=== PATIENT | female | born 1985 | race Caucasian/White ===

== ENCOUNTER 2021-12-26 10:01 | Emergency (ER) | payer OTHER, SELFPAY ==
[2021-12-26] VITALS (9 sets, daily range): BP systolic 129–142; BP diastolic 66–91; PULSE 104–116; RESP 16–21; TEMP 36.7; O2SAT 96–99; BMI 31.5
--- NOTE | 2021-12-26 11:49 | ED_ITS ---
HPI - URI/Sore Throat General Chief Complaint: Upper Respiratory Symptoms Stated Complaint: Cough since September- worsening, chest soreness Time Seen by Provider: 12/26/21 11:42 Source: patient Mode of arrival: Ambulatory History of Present Illness HPI Narrative: The patient is a 36-year-old female history asthma presenting today with ongoing cough and shortness of breath. She says it has been ongoing for couple of months. She has a nonproductive cough. She is unable to bend over to tie her shoes because she gets so short of breath. She has positive orthopnea she has severe dyspnea with exertion. She denies any fever or chills. She does have some chest tightness. She has been using her nebulizer at home she has been using her inhaler she says nothing seems to be working. She was evaluated at a neighboring facility previously [facility] had a chest x-ray and told that she has silent acid reflux. She presents today because it continues to worsen and she is not getting any better. She is noted to be tachycardic in the 115. She states that her heart rate is normally 80 however over the past month it has been in the 120s. His she denies any travel Related Data Previous Rx's Medication Instructions Recorded omeprazole 40 mg capsule,delayed 40 mg PO DAILY #20 caps 12/26/21 release prednisone 10 mg tablet 10 mg PO DAILY #30 tabs 12/26/21 Allergies Allergy/AdvReac Type Severity Reaction Status Date / Time No Known Drug Allergies Allergy Verified 12/26/21 10:10 Review of Systems Review of Systems Narrative: GENERAL: Denies chills, fatigue, malaise, fever, sweats, travel HEENT: Denies sinus pain, ear pain, sore throat, difficulty swallowing, neck pain RESPIRATORY: Denies dyspnea, cough, wheezing, hemoptysis, sputum. CARDIOVASCULAR: See HPI GASTROINTESTINAL: Denies nausea, vomiting, abdominal pain, diarrhea, const ipation, melena. : Denies dysuria, frequency, incontinence, hematuria, urinary retention, flank pain. MUSCULOSKELETAL: Denies weakness, joint pain, or bony pain SKIN: No rash, no erythema, no pruritus NEUROLOGIC: Denies weakness, dizziness, headache, numbness, change in speech, confusion PSYCHIATRIC: No concerning psychosocial issues. 12 point review of systems is negative except for those stated above and HPI Patient History Medical History (Updated 12/26/21 @ 19:41 by Xenia Robertson DO) Asthma Social History Smoking Status: Unknown if ever smoked Smoking Status: Unknown if ever smoked alcohol intake frequency: holidays/special occasions only Substance Use Type: does not use Exam Initial Vital Signs Initial Vital Signs: Vital Signs Temperature 98.1 F 12/26/21 10:08 Pulse Rate 106 H 12/26/21 10:08 Respiratory Rate 16 12/26/21 10:08 Blood Pressure 142/91 H 12/26/21 10:08 Pulse Oximetry 99 12/26/21 10:08 Oxygen Delivery Method 12/26/21 10:08 GENERAL: Pleasant alert 36-year-old female and in no acute distress. HEENT: Head atraumatic,EOMI, pupils reactive, face symmetric, moist mucous membranes CARDIOVASCULAR: Regular rate and rhythm without murmurs, rubs or gallops. RESPIRATORY: Breath sounds equal bilaterally, no wheezes rales or rhonchi. ABDOMEN: Soft, nontender. Normoactive bowel sounds all 4 quadrants. No guarding or rebound. EXTREMITIES: Normal range of motion, no clubbing or edema. Neurovascularly intact NEUROLOGICAL: Alert and oriented x4.Normal gait and speech. SKIN: Warm, dry, no laceration, no petechiae, no rashes or lesions. Course Orders Ordered: ED Orders 12/26/21 11:49 XR chest 1V Stat EKG-12 Lead Stat 12/26/21 12:00 Complete Blood Count AUTO DIFF Stat Comprehensive Metabolic Panel Stat D Dimer Stat Lipase Stat NT-proBNP (BNP-Adult 18+) Stat Troponin & CK Cardiac Panel Stat 12/26/21 13:20 COVID19 -Nasal RAPID/Pre-Proc Stat Discontinued Medications Albuterol/Ipratropium (Albuterol/Ipratropium 3 Ml Ampul) 3 ml INH NOW ONE Stop: 12/26/21 13:02 Last Admin: 12/26/21 14:07 Dose: 3 ml Documented By: WENDY Sodium Chloride (Normal Saline 0.9%) 1,000 mls @ 1,000 mls/hr IV BOLUS ONE Stop: 12/26/21 14:00 Last Infusion: 12/26/21 14:28 Dose: 0 mls/hr Documented By: Admin: 12/26/21 13:16 Dose: 1,000 mls/hr Documented By: MANDEEP Methylprednisolone (Methylprednisolone 125 Mg/2 Ml Vial) 125 mg IV NOW ONE Stop: 12/26/21 13:02 Last Admin: 12/26/21 13:16 Dose: 125 mg Documented By: MANDEEP Vital Signs Vital signs: Vital Signs - 8 hr 12/26/21 12:00 12/26/21 12:00 12/26/21 12:30 Pulse Rate 113 H Respiratory Rate 19 Blood Pressure 138/77 134/77 Pulse Oximetry 97 Oxygen Delivery Method 12/26/21 12:30 12/26/21 13:00 12/26/21 13:00 Pulse Rate 104 H 110 H Respiratory Rate 19 17 Blood Pressure 137/85 Pulse Oximetry 97 96 Oxygen Delivery Method Room Air 12/26/21 13:30 12/26/21 13:30 12/26/21 14:00 Pulse Rate 115 H Respiratory Rate 21 Blood Pressure 131/76 129/76 Pulse Oximetry 96 Oxygen Delivery Method Room Air 12/26/21 14:00 12/26/21 14:07 Pulse Rate 106 H 114 H Respiratory Rate 20 16 Blood Pressure Pulse Oximetry 98 96 Oxygen Delivery Method Room Air Room Air MDM - URI/Sore Throat Lab Data Result diagrams: 12/26/21 12:00 12/26/21 12:00 Labs: Lab Results 12/26/21 12/26/21 12/26/21 Range/Units 12:00 12:00 12:00 WBC 6.3 (4.5-11.0) X10^3/uL RBC 4.80 (4.0-5.2) X10^6/uL Hgb 13.7 (12.0-16.0) g/dL Hct 40.1 (36-46) % MCV 83.6 (80-100) fL MCH 28.6 (26-34) PG MCHC 34.2 (30-36) % RDW 13.6 (11.6-14.8) % Plt Count 267 (150-400) X10^3/uL Neut % (Auto) 72.7 (50-75) % Lymph % (Auto) 19.2 L (25-40) % [place] % (Auto) 5.7 (3-14) % Eos % (Auto) 2.1 (2-4) % Baso % (Auto) 0.3 (0-2) % Neut # (Auto) 4600 (7272-6485) /uL Lymph # (Auto) 1200 (2571-5901) /uL [place] # (Auto) 400 (0-900) /uL Eos # (Auto) 100 (0-450) /uL Baso # (Auto) 0 (0-100) /uL D-Dimer < 200 (<230) ng/mL Sodium 139 (137-145) mmol/L Potassium 4.3 (3.4-5.1) mmol/L Chloride 107 (98-107) mmol/L Carbon Dioxide 24 (22-32) mmol/L BUN 10 (7-17) mg/dL Creatinine 0.83 (0.52-1.04) mg/dL Estimated GFR > 60 (>60) mL/min BUN/Creatinine Ratio 12.0 (6-22) Glucose 103 H (70-100) mg/dL Calcium 9.6 (8.4-10.2) mg/dL Total Bilirubin 0.5 (0.2-1.3) mg/dL AST 32 (14-36) IU/L ALT 30 (<35) IU/L Alkaline Phosphatase 95 (38-126) U/L Total Creatine Kinase 296 H (30-135) U/L CK-MB (CK-2) 2.46 H (<2.37) ng/mL CK-MB (CK-2) Rel Index 0.8 L (1.5-5.0) % Troponin I < 0.012 (0.01-0.034) ng/mL NT-Pro-B Natriuret Pep 31 (<125) pg/mL Total Protein 7.3 (6.3-8.2) g/dL Albumin 4.7 (3.5-5.0) g/dL Globulin 2.6 (1.7-4.1) g/dL Albumin/Globulin Ratio 1.8 (1.0-2.8) Lipase 74 (23-300) U/L SARS-CoV-2 (PCR) (Negative) 12/26/21 Range/Units 13:20 WBC (4.5-11.0) X10^3/uL RBC (4.0-5.2) X10^6/uL Hgb (12.0-16.0) g/dL Hct (36-46) % MCV (80-100) fL MCH (26-34) PG MCHC (30-36) % RDW (11.6-14.8) % Plt Count (150-400) X10^3/uL Neut % (Auto) (50-75) % Lymph % (Auto) (25-40) % [place] % (Auto) (3-14) % Eos % (Auto) (2-4) % Baso % (Auto) (0-2) % Neut # (Auto) (3092-8445) /uL Lymph # (Auto) (3985-4558) /uL [place] # (Auto) (0-900) /uL Eos # (Auto) (0-450) /uL Baso # (Auto) (0-100) /uL D-Dimer (<230) ng/mL Sodium (137-145) mmol/L Potassium (3.4-5.1) mmol/L Chloride (98-107) mmol/L Carbon Dioxide (22-32) mmol/L BUN (7-17) mg/dL Creatinine (0.52-1.04) mg/dL Estimated GFR (>60) mL/min BUN/Creatinine Ratio (6-22) Glucose (70-100) mg/dL Calcium (8.4-10.2) mg/dL Total Bilirubin (0.2-1.3) mg/dL AST (14-36) IU/L ALT (<35) IU/L Alkaline Phosphatase (38-126) U/L Total Creatine Kinase (30-135) U/L CK-MB (CK-2) (<2.37) ng/mL CK-MB (CK-2) Rel Index (1.5-5.0) % Troponin I (0.01-0.034) ng/mL NT-Pro-B Natriuret Pep (<125) pg/mL Total Protein (6.3-8.2) g/dL Albumin (3.5-5.0) g/dL Globulin (1.7-4.1) g/dL Albumin/Globulin Ratio (1.0-2.8) Lipase (23-300) U/L SARS-CoV-2 (PCR) Negative (Negative) Imaging Data Chest x-ray: Radiologist's Impression: Signed Patient: Kailyn Pastor MR#: [id number] : 1985 Acct:[id number] Age/Sex: 36 / F Date of Service: 12/26/21 Loc: ED Accession Number: [id number] ?? Procedure: XR chest 1V Ordering Provider: Xenia Robertson D.O. PROCEDURE:? XR CHEST 1V ? INDICATIONS:? chest pain ? TECHNIQUE:? One view of the chest was acquired.? ? COMPARISON:? None. ? FINDINGS:? ? Surgical changes and devices:? None.? ? Lungs and pleura:? Lungs are clear.? No pleural effusions or pneumothorax.? ? Mediastinum:? Mediastinal contours appear normal.? Heart size is normal.? ? Bones and chest wall:? No suspicious bony lesions.? Overlying soft tissues appear unremarkable.? ? IMPRESSION:? No acute cardiopulmonary disease. ? ? Dictated by: Theodore Godoy M.D. on 12/26/2021 at 12:23 ? ECG Data Interpretation: Normal sinus rhythm rate 110 p.r. interval 128 QRS [address] changes no T-wave inversions no priors to MDM Narrative Medical decision making narrative: Patient has had ongoing shortness of breath for 3 weeks. She has some workup at [facility] and included blood work and chest x-ray. No D-dimer was done. She has progressively become more more tachycardic she seems to be tachycardic here in the ED. D-dimer is -100% on room air. BNP is also negative she has a negative troponin. She has albuterol at home she is given a dose of Solu-Medrol here in the ED. Will put her on a long course of steroids. To see if that helps. Also consideration is of chronic cough do include acid reflux. I will for write her for antacid medications to start when she is done with her prednisone taper. Discharge Plan Departure Patient Disposition: Home Clinical Impression: Exacerbation of reactive airway disease, GERD (gastroesophageal reflux disease) Instructions: DI for Reactive Airway Disease-Adult Activity Restrictions/Additional Instructions: *You have been diagnosed with chronic cough, reactive airway disease *What to do: At this time blood work and x-ray are overall reassuring. Possible causes of chronic cough arm acid reflux or ongoing reactive airway disease. At this time I think reasonable to start course of steroids to see if that helps her cough. You can sign will change please start an antacid for about 2 weeks to see if it improves anything. *Continue to take medications as directed Prednisone 40 mg once a day for 3 days, 30 mg once a day for 3 days 20 mg once a day for 3 days and 10 mg once a day for 3 days *Follow up with your primary care provider in 2-3 days or call [phone] *Return to ER if you should have increasing shortness of breath chest pain or any new, worsening or concerning symptoms Prescriptions: New prednisone 10 mg tablet 10 mg PO DAILY Qty: 30 0RF Rx Instructions: day 1-3: 40 mg once a day day 4-6: 30 mg once a day day 7-9: 20 mg once a day day 10-12: 10 mg once a day omeprazole 40 mg capsule,delayed release(DR/EC) 40 mg PO DAILY Qty: 20 0RF Referrals: Sirena Bowles MD [Primary Care Provider] - Visit Report Forms: Patient Portal/API
--- NOTE | 2021-12-26 11:49 | DI.RAD.S_ITS ---
PROCEDURE: XR CHEST 1V INDICATIONS: chest pain TECHNIQUE: One view of the chest was acquired. COMPARISON: None. FINDINGS: Surgical changes and devices: None. Lungs and pleura: Lungs are clear. No pleural effusions or pneumothorax. Mediastinum: Mediastinal contours appear normal. Heart size is normal. Bones and chest wall: No suspicious bony lesions. Overlying soft tissues appear unremarkable. IMPRESSION: No acute cardiopulmonary disease. Dictated by: Theodore Godoy M.D. on 12/26/2021 at 12:23 Approved by: Theodore Godoy M.D. on 12/26/2021 at 12:23
[2021-12-26 12:10] LABS: Add Manual Diff / Slide Review NO; Basophils Absolute Auto 0 /uL (0-100); Basophils Percent Auto 0.3 % (0-2); Eosinophils Absolute Auto 100 /uL (0-450); Eosinophils Percent Auto 2.1 % (2-4); Hematocrit 40.1 % (36-46); Hemoglobin 13.7 g/dL (12.0-16.0); Lymphocytes Absolute Auto 1200 /uL (1100-4500); Lymphocytes Percent Auto 19.2 % (25-40); Mean Corpuscular HGB Conc 34.2 % (30-36); Mean Corpuscular Hemoglobin 28.6 PG (26-34); Mean Corpuscular Volume 83.6 fL (80-100); Monocytes Absolute Auto 400 /uL (0-900); Monocytes Percent Auto 5.7 % (3-14); Neutrophils Absolute Auto 4600 /uL (1500-7000); Neutrophils Percent Auto 72.7 % (50-75); Platelet Count 267 X10^3/uL (150-400); Red Cell Distribution Width 13.6 % (11.6-14.8); White Blood Cell Count 6.3 X10^3/uL (4.5-11.0)
[2021-12-26 12:23] LABS: D Dimer < 200 ng/mL (<230)
[2021-12-26 12:24] LABS: Alanine Aminotransferase 30 IU/L (<35); Albumin 4.7 g/dL (3.5-5.0); Albumin Globulin Ratio 1.8 (1.0-2.8); Alkaline Phosphatase 95 U/L (38-126); Aspartate Aminotransferase 32 IU/L (14-36); Bilirubin Total 0.5 mg/dL (0.2-1.3); Blood Urea Nitrogen 10 mg/dL (7-17); Calcium 9.6 mg/dL (8.4-10.2); Carbon Dioxide 24 mmol/L (22-32); Chloride 107 mmol/L (98-107); Creatine Kinase 296 U/L (30-135); Estimated Glomerular Filt Rate > 60 mL/min (>60); Globulin 2.6 g/dL (1.7-4.1); Glucose 103 mg/dL (70-100); HEMOLYSIS < 15 (0-50); Lipase 74 U/L (23-300); Potassium 4.3 mmol/L (3.4-5.1); Sodium 139 mmol/L (137-145); Total Protein 7.3 g/dL (6.3-8.2)
[2021-12-26 12:36] LABS: NT-proBNP (BNP-Adult 18+) 31 pg/mL (<125); Troponin I < 0.012 ng/mL (0.01-0.034)
[2021-12-26 12:39] LABS: CKMB % Relative Index 0.8 % (1.5-5.0); Creatine Kinase MB 2.46 ng/mL (<2.37)
[2021-12-26] MEDS: SODIUM CHLORIDE 0.9% 1,000 ML 1000 ML IV (13:16)
[2021-12-26] MEDS: methylPREDNISolone 125 MG/2 ML VIAL IV (13:16)
[2021-12-26 13:50] LABS: COVID19 -Nasal RAPID Negative (Negative)
[2021-12-26] MEDS: ALBUTEROL/IPRATROPIUM 3 ML AMPUL INH (14:07)
== END 2021-12-26 14:33 | disposition home or self-care (01) ==
PROVIDERS: Emergency Provider Emergency Medicine; PCP Student in an Organized Health Care Education/Training Program
DX: J45.901 Unspecified asthma with (acute) exacerbation (principal); K21.9 Gastro-esophageal reflux disease without esophagitis; R07.9 Chest pain, unspecified; Z20.822 Contact with and (suspected) exposure to COVID-19
CPT/HCPCS: 36415; 71045; 80053; 82550; 82553; 83690; 83880; 84484; 85025; 85379; 87635; 93005; 93010; 94640; 96361; 96374; 99284; C9803; J2930

== ENCOUNTER 2023-01-13 14:57 | Emergency (ER) | payer OTHER, SELFPAY ==
[2023-01-13 14:59] VITALS: BP 138/79; PULSE 93; RESP 18; TEMP 36.6; O2SAT 98; BMI 34.7
[2023-01-13 17:20] VITALS: BP 138/79; PULSE 84; O2SAT 99
--- NOTE | 2023-01-13 17:59 | ED.BACK ---
HPI - Back Pain/Injury <Eric Mathis PA-C - Last Filed: 01/13/23 19:32> General Chief Complaint: Back Pain/Injury Stated Complaint: back pain Time Seen by Provider: 01/13/23 17:58 Source: patient History of Present Illness HPI Narrative: 37-year-old female with no reported past medical history presents to the ED with 2 days of lower back pain. Patient states that she sporadically has pain shooting down her legs, however pain is not radiating to the legs currently. Patient denies numbness, tingling, weakness. Patient denies urinary hesitancy, saddle paresthesias, urinary incontinence, bowel incontinence. Patient denies fever, chills, chest pain, shortness of breath. Patient denies trauma. Related Data Previous Rx's Medication Instructions Recorded omeprazole 40 mg capsule,delayed 40 mg PO DAILY #20 caps 12/26/21 release prednisone 10 mg tablet 10 mg PO DAILY #30 tabs 12/26/21 cyclobenzaprine 10 mg tablet 10 mg PO TID PRN muscle spasm 3 01/13/23 days #10 tabs Allergies Allergy/AdvReac Type Severity Reaction Status Date / Time No Known Drug Allergies Allergy Verified 12/26/21 10:10 Review of Systems <Eric Mathis PA-C - Last Filed: 01/13/23 19:32> Review of Systems ROS Unobtainable: All systems reviewed & are unremarkable except as noted in HPI and below Constitutional Constitutional: Denies chills, Denies fatigue, Denies fever(s), Denies frequent falls, Denies lethargy and Denies weakness Eyes Eyes: Denies change in vision, Denies eye discharge, Denies irritation and Denies loss of vision ENT Ears, Nose, Mouth, and Throat: Denies change in voice, Denies dizziness, Denies neck pain, Denies sore throat and Denies throat swelling Cardiovascular Cardiovascular: Denies chest pain, Denies irregular heart rhythm, Denies lightheadedness, Denies palpitations, Denies dyspnea, Denies dyspnea on exertion and Denies orthopnea Respiratory Respiratory: Denies cough, Denies dyspnea, Denies dyspnea on exertion and Denies wheezing Gastrointestinal Gastrointestinal: Denies abdominal pain, Denies change in bowel habits, Denies diarrhea, Denies nausea and Denies vomiting Genitourinary Genitourinary: Denies hematuria, Denies flank pain, Denies urinary incontinence and Denies urinary urgency Musculoskeletal Musculoskeletal: Reports back pain, Denies muscle weakness, Denies neck pain, Denies numbness, Reports radiating pain into limb and Denies tingling Integumentary/Breasts Skin/Breast: Denies pruritus, Denies erythema, Denies rash and Denies wounds Neurologic Neurologic: Denies behavioral changes, Denies confusion, Denies dizziness, Denies frequent falls, Denies loss of vision, Denies numbness, Denies tingling and Denies weakness Psychiatric Psychiatric: Denies anxiety, Denies behavioral changes, Denies confusion, Denies depression, Denies homicidal ideation and Denies suicidal ideation Endocrine Endocrine: Denies fatigue, Denies flushing and Denies palpitations Hematologic/Lymphatic Hematologic/Lymphatic: Denies easy bruising Allergic/Immunologic Allergic/Immunologic: Denies urticaria, Denies throat swelling and Denies wheezing Patient History <Eric Mathis PA-C - Last Filed: 01/13/23 19:32> Medical History Asthma Social History Smoking Status: Never smoker Smoking Status: Never smoker alcohol intake frequency: holidays/special occasions only Substance Use Type: does not use Exam <Eric Mathis PA-C - Last Filed: 01/13/23 19:32> Narrative Exam Narrative: Const General:?cooperative, healthy appearing and comfortable [facility] Head:?normal to inspection Ears:?hearing grossly normal bilaterally Nose:?external nose normal Face and sinus:?normal facial exam and sinuses nontender Mouth:?oral mucosae normal Throat:?posterior oropharynx normal Eyes General:?appearance normal, both eyes and all related structures Neck Neck:?normal visual inspection and no lymphadenopathy noted Resp Effort & Inspection:?normal respiratory effort Auscultation:?clear to auscultation bilaterally Cardio Rate:?regular rate Rhythm:?regular rhythm Musculoskeletal There is some midline tenderness to palpation in the lumbar region. No bruising. Strength and sensation is intact. There is full range of motion. Patient appears neurovascularly intact. Neuro General:?patient alert, patient awake and patient oriented x3 Initial Vital Signs Initial Vital Signs: Vital Signs Temperature 97.8 F 01/13/23 14:59 Pulse Rate 93 H 01/13/23 14:59 Respiratory Rate 18 01/13/23 14:59 Blood Pressure 138/79 01/13/23 14:59 Pulse Oximetry 98 01/13/23 14:59 Oxygen Delivery Method Room Air 01/13/23 14:59 <Adriel Henao DO - Last Filed: 01/14/23 02:38> Initial Vital Signs Initial Vital Signs: Vital Signs Temperature 97.8 F 01/13/23 14:59 Pulse Rate 93 H 01/13/23 14:59 Respiratory Rate 18 01/13/23 14:59 Blood Pressure 138/79 01/13/23 14:59 Pulse Oximetry 98 01/13/23 14:59 Oxygen Delivery Method Room Air 01/13/23 14:59 Course <Eric Mathis PA-C - Last Filed: 01/13/23 19:32> Orders Ordered: ED Orders 01/13/23 18:06 XR lumbar spine 2-3V Stat Discontinued Medications Cyclobenzaprine HCl (Cyclobenzaprine 10 Mg Tablet) 10 mg PO NOW ONE Stop: 01/13/23 18:03 Last Admin: 01/13/23 18:12 Dose: 10 mg Documented By: SG Ketorolac Tromethamine (Ketorolac 30 Mg/Ml Vial) 30 mg IM NOW ONE Stop: 01/13/23 18:03 Last Admin: 01/13/23 18:12 Dose: 30 mg Documented By: SG Lidocaine (Lidocaine Patch 1 Each Adh..Patch) 1 each TOP NOW ONE Stop: 01/13/23 18:04 Last Admin: 01/13/23 18:12 Dose: 1 each Documented By: SG Oxycodone/Acetaminophen (Oxycodone/Acetaminophen 5/325 Tablet) 1 tab PO NOW ONE Stop: 01/13/23 19:16 Last Admin: 01/13/23 19:24 Dose: 1 tab Documented By: AP Vital Signs Vital signs: Vital Signs - 8 hr 01/13/23 18:56 01/13/23 19:40 Pulse Rate 78 85 Respiratory Rate 18 16 Blood Pressure 141/101 H 136/78 Pulse Oximetry 99 99 Oxygen Delivery Method Room Air Room Air <Adriel Henao DO - Last Filed: 01/14/23 02:38> Orders Ordered: ED Orders 01/13/23 18:06 XR lumbar spine 2-3V Stat Discontinued Medications Cyclobenzaprine HCl (Cyclobenzaprine 10 Mg Tablet) 10 mg PO NOW ONE Stop: 01/13/23 18:03 Last Admin: 01/13/23 18:12 Dose: 10 mg Documented By: SG Ketorolac Tromethamine (Ketorolac 30 Mg/Ml Vial) 30 mg IM NOW ONE Stop: 01/13/23 18:03 Last Admin: 01/13/23 18:12 Dose: 30 mg Documented By: SG Lidocaine (Lidocaine Patch 1 Each Adh..Patch) 1 each TOP NOW ONE Stop: 01/13/23 18:04 Last Admin: 01/13/23 18:12 Dose: 1 each Documented By: SG Oxycodone/Acetaminophen (Oxycodone/Acetaminophen 5/325 Tablet) 1 tab PO NOW ONE Stop: 01/13/23 19:16 Last Admin: 01/13/23 19:24 Dose: 1 tab Documented By: AP Vital Signs Vital signs: Vital Signs - 8 hr 01/13/23 18:56 01/13/23 19:40 Pulse Rate 78 85 Respiratory Rate 18 16 Blood Pressure 141/101 H 136/78 Pulse Oximetry 99 99 Oxygen Delivery Method Room Air Room Air MDM - Back Pain/Injury <Eric Mathis PA-C - Last Filed: 01/13/23 19:32> MDM Narrative Medical decision making narrative: 37-year-old female with no reported past medical history presents to the ED with 2 days of lower back pain. There is some lumbar midline tenderness. Will obtain x-rays to rule out fracture/dislocation. Will treat with ketorolac, Flexeril, lidocaine patch. Will reassess. Patient reported minimal improvement in pain with medications. Patient was given 1 dose of Percocet. X-ray negative for fractures or dislocations. Patient's symptoms are likely due to a musculoskeletal sprain/strain versus slipped disc. Recommend follow-up with PCP, physical therapy for further evaluation. Recommend continued supportive care with lidocaine patches, Tylenol, Flexeril. Prescribed Flexeril. ED return precautions were discussed with patient. Patient verbalized understanding. Medical records reviewed: Yes Discharge Plan Departure Patient Disposition: Home Clinical Impression: Low back pain Instructions: DI for Low Back Pain Activity Restrictions/Additional Instructions: You were evaluated in the ED today for lower back pain. Your x-ray did not show any fractures or dislocations. Your symptoms are likely due to a musculoskeletal sprain/strain or a slipped disc. You may continue to take Flexeril, ibuprofen, Tylenol. Please follow-up with your PCP for further evaluation, referral to physical therapy. Return to the ED if you experience any numbness, tingling, weakness. Prescriptions: New cyclobenzaprine 10 mg tablet 10 mg PO TID PRN (Reason: muscle spasm) 3 Days Qty: 10 0RF No Action prednisone 10 mg tablet 10 mg PO DAILY Qty: 30 0RF Rx Instructions: day 1-3: 40 mg once a day day 4-6: 30 mg once a day day 7-9: 20 mg once a day day 10-12: 10 mg once a day omeprazole 40 mg capsule,delayed release(DR/EC) 40 mg PO DAILY Qty: 20 0RF Referrals: Sirena Bowles MD [Primary Care Provider] - Stand Alone Forms: Patient Portal/API <Adriel Henao DO - Last Filed: 01/14/23 02:38> [facility] Attestation: I was immediately available in the department for consultation. Documentation has been reviewed. I agree with assessment and plan.
--- NOTE | 2023-01-13 18:06 | DI.RAD.S_ITS ---
PROCEDURE: XR LUMBAR SPINE 2-3V INDICATIONS: Lower back pain TECHNIQUE: 3 views of the lumbar spine were acquired. COMPARISON: [facility], CT, CT KUB, 05/28/2021, 11:51. FINDINGS: Bones: 5 [id number] vertebrae are present. Minimal right convexity curvature centered at L3. No lumbar vertebral body compression fractures identified. No severe substantial lumbar spine degenerative changes identified radiographically. Soft tissues: Overlying bowel gas pattern is normal. No suspicious soft tissue calcifications. An IUD projects over the pelvis. IMPRESSION: No lumbar spine vertebral body compression fracture identified radiographically. Dictated by: Wally Henry M.D. on 01/13/2023 at 19:19 Approved by: Wally Henry M.D. on 01/13/2023 at 19:21
[2023-01-13] MEDS: CYCLOBENZAPRINE 10 MG TABLET PO (18:12)
[2023-01-13] MEDS: KETOROLAC 30 MG/ML VIAL IM (18:12)
[2023-01-13] MEDS: LIDOCAINE PATCH 1 EACH ADH..PATCH TOP (18:12)
[2023-01-13 18:56] VITALS: BP 141/101; PULSE 78; RESP 18; O2SAT 99
[2023-01-13] MEDS: OXYCODONE/ACETAMINOPHEN 5/325 TABLET 1 TAB PO (19:24)
[2023-01-13 19:40] VITALS: BP 136/78; PULSE 85; RESP 16; O2SAT 99
== END 2023-01-13 19:47 | disposition home or self-care (01) ==
PROVIDERS: Emergency Provider Student in an Organized Health Care Education/Training Program; PCP Student in an Organized Health Care Education/Training Program
DX: M54.50 Low back pain, unspecified (principal)
CPT/HCPCS: 72100; 96372; 99283; J1885

== ENCOUNTER 2023-12-07 10:37 | Emergency (ER) | payer OTHER, SELFPAY ==
[2023-12-07 10:40] VITALS: BP 136/72; PULSE 95; RESP 16; TEMP 36.6; O2SAT 96; BMI 31.8
--- NOTE | 2023-12-07 11:05 | PC.NURSE ---
Pt states that she has significant hx of migraine and see's neurology at [facility]. Pt gets botox injections for her migraines and reports that the botox normally helps. Has been experiencing migraines for approximately 4 days and states that last night was the worst MARRERO she has ever had in her life. Pt reports that this migraine is in a different location than normal and goes up her neck and through the back of her head. Pt experiencing n/v and cannot keep anything down. A&Ox4.
--- NOTE | 2023-12-07 11:49 | DI.CT.S_ITS ---
PROCEDURE: CT HEAD/BRAIN WO CON INDICATIONS: Intractable headache TECHNIQUE: Noncontrast 4.5 mm thick angled axial sections acquired from the foramen magnum to the vertex, with coronal and sagittal reformats. For radiation dose reduction, the following was used: automated exposure control, adjustment of mA and/or kV according to patient size. COMPARISON: [facility], MR, MR BRAIN WITHOUT CONTRAST, 06/13/2021, 9:07. FINDINGS: Image quality: Diagnostic. CSF spaces: Basal cisterns are patent. No extra-axial fluid collections. Ventricles are normal in size and shape. Brain: No midline shift. No intracranial masses or hemorrhage. Gonzales-white matter interface is normal. Skull and face: Calvarium and visualized facial bones are intact, without suspicious lesions. Sinuses: Visualized sinuses and mastoids are clear. IMPRESSION: Unremarkable intracranial study, without an imaging explanation found for the patient's presenting history of headache. To the limits of this noncontrast study, no findings of intracranial masses or mass effect can be seen. Dictated by: Jhon Bermudez M.D. on 12/07/2023 at 11:26 Approved by: Jhon Bermudez M.D. on 12/07/2023 at 11:27
--- NOTE | 2023-12-07 11:52 | ED_ITS ---
HPI - Headache General Chief Complaint: Headache Stated Complaint: migraine Time Seen by Provider: 12/07/23 11:38 Mode of arrival: Ambulatory History of Present Illness HPI Narrative: Patient here with daughter. Daughter is driving. Complains of headache for the past 5 days, occipital radiating down the neck. Has had nausea and vomiting. No fever chills. Patient gets Botox injections for migraine headaches. Has long history of migraine headaches. However the location of headache is new. It is occipital. Usually it is facial or left-sided. Has had light sensitivity and noise sensitivity. Denies does not want a test. No numbness tingling weakness Related Data Previous Rx's Medication Instructions Recorded omeprazole 40 mg capsule,delayed 40 mg PO DAILY #20 caps 12/26/21 release prednisone 10 mg tablet 10 mg PO DAILY #30 tabs 12/26/21 Allergies Allergy/AdvReac Type Severity Reaction Status Date / Time No Known Drug Allergies Allergy Verified 12/07/23 10:44 Review of Systems Review of Systems Narrative: GENERAL: negative chills, fatigue, malaise, fever, sweats. HEENT: negative sinus pain, ear pain, sore throat positive photophobia RESPIRATORY: negative dyspnea, cough CARDIOVASCULAR: negative chest pain, palpitations GASTROINTESTINAL: Positive nausea, negative vomiting, abdominal pain : negative dysuria, frequency, hematuria MUSCULOSKELETAL: negative muscle or bony pain SKIN: negative rash, skin lesions NEUROLOGIC: negative weakness, numbness ROS Unobtainable: All systems reviewed & are unremarkable except as noted in HPI and below Patient History Medical History Asthma Social History Smoking Status: Never smoker Smoking Status: Never smoker alcohol intake frequency: holidays/special occasions only Substance Use Type: does not use Exam Narrative Exam Narrative: GENERAL: in no distress, not toxic not dyspneic HEAD: Normocephalic. EYES: Pupils equal round Examination of the eyes no photophobia no papilledema. Fundusscope used. ENT: Mucous membranes moist. NECK: Trachea midline. Examination neck bilateral paracervical muscle tenderness but has full active range of motion of the neck. No nuchal rigidity. No meningeal signs. CARDIOVASCULAR: Regular rate and rhythm RESPIRATORY: Clear to auscultation. Breath sounds equal bilaterally. No wheezes, rales, or rhonchi. GASTROINTESTINAL: Abdomen soft, non-tender EXTREMITIES: No gross deformities. BACK: No flank tenderness. NEURO: AOx4. Clear speech SKIN: Warm and dry PSYCH: Not anxious, is cooperative Initial Vital Signs Initial Vital Signs: Vital Signs Temperature 98 F 12/07/23 10:40 Pulse Rate 95 H 12/07/23 10:40 Respiratory Rate 16 12/07/23 10:40 Blood Pressure 136/72 12/07/23 10:40 Pulse Oximetry 96 12/07/23 10:40 Oxygen Delivery Method Room Air 12/07/23 10:40 Course Orders Ordered: Discontinued Medications Diphenhydramine HCl (Diphenhydramine 50 Mg/Ml Vial) 25 mg IV NOW ONE Stop: 12/07/23 11:51 Last Admin: 12/07/23 12:18 Dose: 25 mg Documented By: IRENE Sodium Chloride (Normal Saline 0.9%) 1,000 mls @ 1,000 mls/hr IV BOLUS ONE Stop: 12/07/23 12:48 Last Infusion: 12/07/23 13:23 Dose: Infused Documented By: Admin: 12/07/23 12:18 Dose: 1,000 mls/hr Documented By: MPO Ketorolac Tromethamine (Ketorolac 30 Mg/Ml Vial) 15 mg IV NOW ONE Stop: 12/07/23 11:50 Last Admin: 12/07/23 12:17 Dose: 15 mg Documented By: MPO Prochlorperazine (Prochlorperazine 10 Mg/2 Ml Vial) 10 mg IV NOW ONE Stop: 12/07/23 11:50 Last Admin: 12/07/23 12:17 Dose: 10 mg Documented By: MPO Vital Signs Vital signs: Vital Signs - 8 hr 12/07/23 10:40 Temperature 98 F Pulse Rate 95 H Respiratory Rate 16 Blood Pressure 136/72 Pulse Oximetry 96 Oxygen Delivery Method Room Air MDM - Headache Imaging Data CT scan - head: Radiologist's Impression: [address] [address] [address] Scan Report Signed Patient: Kailyn Pastor MR#: [id number] : 1985 Acct:[id number] Age/Sex: 38 / F Date of Service: 12/07/23 Loc: ED Accession Number: [id number] Procedure: CT head/brain wo con Ordering Provider: Francis Kaufman MD PROCEDURE: CT HEAD/BRAIN WO CON INDICATIONS: Intractable headache TECHNIQUE: Noncontrast 4.5 mm thick angled axial sections acquired from the foramen magnum to the vertex, with coronal and sagittal reformats. For radiation dose reduction, the following was used: automated exposure control, adjustment of mA and/or kV according to patient size. COMPARISON: [facility], MR, MR BRAIN WITHOUT CONTRAST, 06/13/2021, 9:07. FINDINGS: Image quality: Diagnostic. CSF spaces: Basal cisterns are patent. No extra-axial fluid collections. Ventricles are normal in size and shape. Brain: No midline shift. No intracranial masses or hemorrhage. Gonzales-white matter interface is normal. Skull and face: Calvarium and visualized facial bones are intact, without suspicious lesions. Sinuses: Visualized sinuses and mastoids are clear. IMPRESSION: Unremarkable intracranial study, without an imaging explanation found for the patient's presenting history of headache. To the limits of this noncontrast study, no findings of intracranial masses or mass effect can be seen. Dictated by: Jhon Bermudez M.D. on 12/07/2023 at 11:26 Approved by: Jhon Bermudez M.D. on 12/07/2023 at 11:27 [facility] Narrative Medical decision making narrative: Patient here with daughter. Daughter is driving. Complains of headache for the past 5 days, occipital radiating down the neck. Has had nausea and vomiting. No fever chills. Patient gets Botox injections for migraine headaches. Has long history of migraine headaches. However the location of headache is new. It is occipital. Usually it is facial or left-sided. Has had light sensitivity and noise sensitivity. Denies does not want a test. No numbness tingling weakness After history and exam Toradol Benadryl Compazine normal saline CT head, exam is reassuring vital signs reassuring. Nontoxic.. No blood work indicated at this time. No fever. [facility] Medical records reviewed: No recent visit for this complaint Differential considered: Includes but not limited to migraine headache tension headache meningitis Imaging studies independently reviewed: CT head no acute finding Treatments: Toradol Benadryl Compazine normal saline Re-evaluations: 4:24 p.m.. Patient feeling much better. Headache nearly gone. No nausea. Patient desires discharge home. Reviewed imaging studies with her. Daughters at bedside in his going to drive. Return precautions reviewed. She states she does have a neurologist that manages her migraine headaches. She will call them this week for follow up. Discussion: Appropriate for discharge home exam and imaging studies are reassuring. Patient improved significantly with conservative treatment. No blood work or lumbar puncture indicated this time. Return precautions reviewed with patient. She desires discharge home Diagnosis: Migraine headache Discharge Plan Departure Patient Disposition: Home Clinical Impression: Migraine Qualifiers: Migraine type: unspecified Status migrainosus presence: without status migrainosus Intractability: not intractable Qualified Code(s): G43.909 - Migraine, unspecified, not intractable, without status migrainosus Instructions: DI for Migraine Activity Restrictions/Additional Instructions: No driving operating machinery today. Please see your neurologist within a week for re-evaluation for possible medication changes for migraine management. Your exam and CT scan imaging studies are reassuring today. Return if worse if any questions or concerns Prescriptions: No Action prednisone 10 mg tablet 10 mg PO DAILY Qty: 30 0RF Rx Instructions: day 1-3: 40 mg once a day day 4-6: 30 mg once a day day 7-9: 20 mg once a day day 10-12: 10 mg once a day omeprazole 40 mg capsule,delayed release(DR/EC) 40 mg PO DAILY Qty: 20 0RF Referrals: Sirena Bowles MD [Primary Care Provider] - Stand Alone Forms: Patient Portal/API
[2023-12-07] MEDS: PROCHLORPERAZINE 10 MG/2 ML VIAL IV (12:17)
[2023-12-07] MEDS: KETOROLAC 30 MG/ML VIAL 15 MG IV (12:17)
[2023-12-07] MEDS: diphenhydrAMINE 50 MG/ML VIAL 25 MG IV (12:18)
[2023-12-07] MEDS: SODIUM CHLORIDE 0.9% 1,000 ML 1000 ML IV (12:18)
--- NOTE | 2023-12-07 14:15 | PC.NURSE ---
Pt reports that she is starting to feel better. She still has MARRERO, but pain is slowly resolving and n/v has resolved. 12/29 pain.
[2023-12-07 16:29] VITALS: BP 121/72; PULSE 87; RESP 16; O2SAT 96
== END 2023-12-07 16:30 | disposition home or self-care (01) ==
PROVIDERS: Emergency Provider Emergency Medicine; PCP Student in an Organized Health Care Education/Training Program
DX: G43.909 Migraine, unspecified, not intractable, without status migrainosus (principal)
CPT/HCPCS: 36415; 70450; 96361; 96374; 96375; 99284; J0780; J1200; J1885

== ENCOUNTER 2024-07-31 10:48 | Emergency (ER) | payer OTHER, SELFPAY ==
[2024-07-31 10:56] VITALS: BP 117/71; PULSE 94; RESP 16; TEMP 36.3; O2SAT 97; BMI 31.8
--- NOTE | 2024-07-31 12:42 | PC.NURSE ---
Acute on chronic back pain. Pt states she thinks it flared up or Thursday. Pt states the back pain woke her up in her sleep. 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 Pt states she has been using appropriate body mechanics. Pt states she has taken tyelonal and ibuprofen for pain but has not had much improvement. Pt states she sees a pain management doctor for her back pain and has her seeing PT but states PT has been exacerbating her pain. Pt states she usually will get epidural shots for her back. Pt denies loss of bladder or bowel. Denies any new weakness. Pt states the pain shoots up right buttocks. Pt states the pain more so affects her right side. Pt reports the pain originates in the middle of her lower back. Pt reports chronic neck issues and states she has had no new involvement with her neck. Pt ambulates w/o assistance; however endorses pain with ambulation.
--- NOTE | 2024-07-31 12:49 | ED.BACK ---
HPI - Back Pain/Injury <Malina Jones PA-C - Last Filed: 07/31/24 13:56> General Chief Complaint: Back Pain/Injury Stated Complaint: Lower Back Pain Time Seen by Provider: 07/31/24 12:42 Source: patient History of Present Illness HPI Narrative: Ms. Pastor is a pleasant 39-year-old female with a past medical history of chronic low back pain who presents to the emergency department for acute on chronic low back pain x3 days. 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 She denies any specific injury or trauma the inside of her pain however on Thursday her chronic low back pain started to get worse. States that she has not had a flare of low back pain like this in over a year. She currently sees pain management but only takes pregabalin, she is having physical therapy now in order to change her pain management regimen. She denies bowel or bladder dysfunction, fevers, chills, abdominal pain, nausea, vomiting, dysuria, hematuria, direct trauma, lower extremity numbness or weakness or tingling, concerned for . She has not taken any medications prior to arrival. No history of IV drug use. Related Data Previous Rx's Medication Instructions Recorded omeprazole 40 mg capsule,delayed 40 mg PO DAILY #20 caps 12/26/21 release prednisone 10 mg tablet 10 mg PO DAILY #30 tabs 12/26/21 acetaminophen 500 mg capsule 1,000 mg (2 x 500 mg) PO Q6H PRN 07/31/24 pain #20 caps lidocaine 5 % topical patch 1 patch topical DAILY #15 ea 07/31/24 (Lidoderm) methocarbamol 1,000 mg tablet 1,000 mg PO BEDTIME #10 tabs 07/31/24 naproxen 500 mg tablet 500 mg PO BID PRN pain #14 tabs 07/31/24 prednisone 20 mg tablet 40 mg (2 x 20 mg) PO DAILY 5 days 07/31/24 #10 tabs Allergies Allergy/AdvReac Type Severity Reaction Status Date / Time No Known Drug Allergies Allergy Verified 12/07/23 10:44 Review of Systems <Malina Jones PA-C - Last Filed: 07/31/24 13:56> Review of Systems ROS Unobtainable: All systems reviewed & are unremarkable except as noted in HPI and below Patient History <Malina Jones PA-C - Last Filed: 07/31/24 13:56> Medical History Asthma Social History Smoking Status: Never smoker Smoking Status: Never smoker alcohol intake frequency: holidays/special occasions only Exam <Malina Jones PA-C - Last Filed: 07/31/24 13:56> Narrative Exam Narrative: GENERAL: 39 year old patient appears stated age. Well-developed patient, in no acute distress. HEAD: Atraumatic. Normocephalic. NECK: Trachea midline. Cervical ROM intact. CARDIOVASCULAR: Regular rate and rhythm. RESPIRATORY: ?Nonlabored respirations. ?Speaking in clear, full sentences. ?? EXTREMITIES: No edema or joint tenderness. Strong PT pulses BL. BACK: Right paraspinal lumbar tenderness, right SI joint tenderness. No midline bony tenderness. NEURO: AOx3. ?Clear speech. ?Moves all 4 extremities appropriately. Sensation intact to light touch on bilateral lower extremities. SKIN: No rash or erythema of visible areas Initial Vital Signs Initial Vital Signs: Vital Signs Temperature 97.4 F L 07/31/24 10:56 Pulse Rate 94 H 07/31/24 10:56 Respiratory Rate 16 07/31/24 10:56 Blood Pressure 117/71 07/31/24 10:56 Pulse Oximetry 97 07/31/24 10:56 Oxygen Delivery Method Room Air 07/31/24 10:56 <Gilberto Yusuf MD - Last Filed: 07/31/24 21:22> Initial Vital Signs Initial Vital Signs: Vital Signs Temperature 97.4 F L 07/31/24 10:56 Pulse Rate 94 H 07/31/24 10:56 Respiratory Rate 16 07/31/24 10:56 Blood Pressure 117/71 07/31/24 10:56 Pulse Oximetry 97 07/31/24 10:56 Oxygen Delivery Method Room Air 07/31/24 10:56 Course <Malina Jones PA-C - Last Filed: 07/31/24 13:56> Orders Ordered: Discontinued Medications Acetaminophen (Acetaminophen 325 Mg Tablet) 975 mg PO NOW ONE Stop: 07/31/24 13:01 Last Admin: 07/31/24 13:32 Dose: 975 mg Documented By: LAVELL Ketorolac Tromethamine (Ketorolac 30 Mg/Ml Vial) 30 mg IM NOW ONE Stop: 07/31/24 13:01 Last Admin: 07/31/24 13:32 Dose: 30 mg Documented By: LAVELL Lidocaine (Lidocaine 5% Patch) 1 each TOP NOW ONE Stop: 07/31/24 13:01 Last Admin: 07/31/24 13:33 Dose: 1 each Documented By: LAVELL Oxycodone HCl (Oxycodone Ir 5 Mg Tablet) 5 mg PO NOW ONE Stop: 07/31/24 13:01 Last Admin: 07/31/24 13:33 Dose: 5 mg Documented By: LAVELL Prednisone (Prednisone 20 Mg Tablet) 40 mg PO NOW ONE Stop: 07/31/24 13:01 Last Admin: 07/31/24 13:33 Dose: 40 mg Documented By: LAVELL Vital Signs Vital signs: Vital Signs - 8 hr 07/31/24 13:38 Pulse Rate 71 Respiratory Rate 16 Blood Pressure 109/76 Pulse Oximetry 99 Oxygen Delivery Method Room Air <Gilberto Yusuf MD - Last Filed: 07/31/24 21:22> Orders Ordered: Discontinued Medications Acetaminophen (Acetaminophen 325 Mg Tablet) 975 mg PO NOW ONE Stop: 07/31/24 13:01 Last Admin: 07/31/24 13:32 Dose: 975 mg Documented By: LAVELL Ketorolac Tromethamine (Ketorolac 30 Mg/Ml Vial) 30 mg IM NOW ONE Stop: 07/31/24 13:01 Last Admin: 07/31/24 13:32 Dose: 30 mg Documented By: LAVELL Lidocaine (Lidocaine 5% Patch) 1 each TOP NOW ONE Stop: 07/31/24 13:01 Last Admin: 07/31/24 13:33 Dose: 1 each Documented By: LAVELL Oxycodone HCl (Oxycodone Ir 5 Mg Tablet) 5 mg PO NOW ONE Stop: 07/31/24 13:01 Last Admin: 07/31/24 13:33 Dose: 5 mg Documented By: LAVELL Prednisone (Prednisone 20 Mg Tablet) 40 mg PO NOW ONE Stop: 07/31/24 13:01 Last Admin: 07/31/24 13:33 Dose: 40 mg Documented By: LAVELL Vital Signs Vital signs: Vital Signs - 8 hr 07/31/24 13:38 Pulse Rate 71 Respiratory Rate 16 Blood Pressure 109/76 Pulse Oximetry 99 Oxygen Delivery Method Room Air MDM - Back Pain/Injury <Malina Jones PA-C - Last Filed: 07/31/24 13:56> Medical Records Attestation: I reviewed the patient's medical records. Medical records narrative: 01/13/23 ED visit for low back pain MDM Narrative Medical decision making narrative: 39-year-old female with a past medical history of chronic low back pain who presents to the emergency department for acute on chronic low back pain x3 days. Differential diagnosis includes but is not limited to acute on chronic low back pain, lumbar radiculopathy, sacroiliitis, herniated disc, spinal stenosis, degenerative disc disease, muscle strain, etc. On exam patient is in no acute distress, nontoxic appearing, vital signs appropriate. She has tenderness to palpation of the right paralumbar spinal region and right SI joint. Lower extremities are neurovascularly intact. No bowel or bladder dysfunction or paresthesias. She does have a long history of chronic low back pain that she has been seeing pain management for for the last 4 years locally. No medications prior to arrival except for prescribed pregabalin which she reports does not help her. We will treat with short course of steroids, anti-inflammatories, Tylenol, Lidoderm patches, muscle relaxers, 1 time dose of oxycodone in the emergency department for severe pain, she does have a ride home. Discussed the importance of following up with her primary care doctor and Orthopedic spine for further evaluation and management. We discussed strict ED return precautions. Patient verbalized understanding of all information is agreeable to plan. She is ambulatory and stable for discharge home. Discharge Plan Departure Patient Disposition: Home Clinical Impression: Acute exacerbation of chronic low back pain Instructions: DI for Low Back Pain Activity Restrictions/Additional Instructions: Dear Theresa Darby, Today you were evaluated for an acute flare of your chronic low back pain. You were treated with anti-inflammatories, steroids and pain medication in the emergency department. I have prescribed you additional pain medication muscle relaxers for home. Please rest, perform gentle stretching, and follow up with your primary care doctor. I also recommend that you follow up with an orthopedic environmental programs specialist for further evaluation. [facility] orthopedic spine surgeon Dr. Francis Perez: [phone] Opioid pain medications and muscle relaxers can make you drowsy so it is very important to not take these medications while driving a car, operating heavy machinery, or drinking alcohol. Return to the emergency department immediately if you develop any new or worsening symptoms, bowel or bladder problems, or other concerns. Please follow up with your primary care doctor within the next 2-3 days for ER follow-up. (If you do not have a PCP you can call [phone]. ?to schedule an appointment with an [facility] Primary Care Provider) IF YOU DEVELOP ANY NEW OR WORSENING SYMPTOMS, RETURN TO THE ER! Please read the attached instructions, they highlight more specific treatments and interventions for you at home. Thank you for letting me participate in your care, Malina Jones PA-C Prescriptions: New methocarbamol 1,000 mg tablet 1,000 mg PO BEDTIME Qty: 10 0RF naproxen 500 mg tablet 500 mg PO BID PRN (Reason: pain) Qty: 14 0RF acetaminophen 500 mg capsule 1,000 mg PO Q6H PRN (Reason: pain) Qty: 20 0RF Rx Instructions: Max three times a day. lidocaine [Lidoderm] 5 % adhesive patch,medicated 1 patch topical DAILY Qty: 15 0RF Rx Instructions: leave on most painful area for up to 12 hrs prednisone 20 mg tablet 40 mg PO DAILY 5 Days Qty: 10 0RF No Action prednisone 10 mg tablet 10 mg PO DAILY Qty: 30 0RF Rx Instructions: day 1-3: 40 mg once a day day 4-6: 30 mg once a day day 7-9: 20 mg once a day day 10-12: 10 mg once a day omeprazole 40 mg capsule,delayed release(DR/EC) 40 mg PO DAILY Qty: 20 0RF Referrals: Sirena Bowles MD [Primary Care Provider] - Stand Alone Forms: Patient Portal/API/Survey, Work Release Note ED Sign-out <Gilberto Yusuf MD - Last Filed: 07/31/24 21:22> Cosign ED Attending Cosignature Attestation: I was immediately available in the department for consultation. This documentation has been reviewed and I agree with assessment and plan. Supervised by Gilberto Yusuf MD
[2024-07-31] MEDS: KETOROLAC 30 MG/ML VIAL IM (13:32)
[2024-07-31] MEDS: ACETAMINOPHEN 325 MG TABLET 975 MG PO (13:32)
[2024-07-31] MEDS: predniSONE 20 MG TABLET 40 MG PO (13:33)
[2024-07-31] MEDS: OXYCODONE IR 5 MG TABLET PO (13:33)
[2024-07-31] MEDS: LIDOCAINE 5% PATCH 1 EACH TOP (13:33)
[2024-07-31 13:38] VITALS: BP 109/76; PULSE 71; RESP 16; O2SAT 99
== END 2024-07-31 13:55 | disposition home or self-care (01) ==
PROVIDERS: Emergency Provider Physician Assistant; PCP Student in an Organized Health Care Education/Training Program
DX: M54.50 Low back pain, unspecified (principal); G89.29 Other chronic pain
CPT/HCPCS: 96372; 99283; 99284; J1885

== ENCOUNTER 2024-08-02 13:54 | Emergency (ER) | payer OTHER, SELFPAY ==
[2024-08-02 14:32] VITALS: BP 129/72; PULSE 85; RESP 16; TEMP 37.1; O2SAT 99; BMI 31.8
[2024-08-02] MEDS: ONDANSETRON 4 MG ODT SL (17:38)
[2024-08-02 18:48] VITALS: BP 126/80; PULSE 78; RESP 18; O2SAT 100
[2024-08-02] MEDS: KETOROLAC 30 MG/ML VIAL IM (19:14)
--- NOTE | 2024-08-02 19:28 | ED.BACK ---
HPI - Back Pain/Injury <Eric Mathis PA-C - Last Filed: 08/02/24 19:32> General Chief Complaint: Back Pain/Injury Stated Complaint: back pain Time Seen by Provider: 08/02/24 17:29 History of Present Illness HPI Narrative: 39-year-old female with past medical history chronic lower back pain presents to the ED for acute on chronic exacerbation of the low back pain. Patient was seen in the ED 2 days ago, prescribed prednisone, methocarbamol. Patient states she has not had any improvement with the medications. Patient denies any new injuries or trauma. No numbness, tingling, weakness. Patient does say that the pain travels down the back of her right buttock. No urinary hesitancy, urinary incontinence. Patient able to bear weight and walk. Related Data Previous Rx's Medication Instructions Recorded omeprazole 40 mg capsule,delayed 40 mg PO DAILY #20 caps 12/26/21 release prednisone 10 mg tablet 10 mg PO DAILY #30 tabs 12/26/21 acetaminophen 500 mg capsule 1,000 mg (2 x 500 mg) PO Q6H PRN 07/31/24 pain #20 caps lidocaine 5 % topical patch 1 patch topical DAILY #15 ea 07/31/24 (Lidoderm) methocarbamol 1,000 mg tablet 1,000 mg PO BEDTIME #10 tabs 07/31/24 naproxen 500 mg tablet 500 mg PO BID PRN pain #14 tabs 07/31/24 prednisone 20 mg tablet 40 mg (2 x 20 mg) PO DAILY 5 days 07/31/24 #10 tabs cyclobenzaprine 10 mg tablet 10 mg PO TID PRN muscle spasm #14 08/02/24 tabs tramadol 50 mg tablet 50 mg PO Q8H PRN pain 3 days #10 08/02/24 tabs Allergies Allergy/AdvReac Type Severity Reaction Status Date / Time oxycodone AdvReac Intermediate Hives Verified 08/02/24 14:36 Review of Systems <Eric Mathis PA-C - Last Filed: 08/02/24 19:32> Constitutional Constitutional: Denies chills, Denies fatigue, Denies fever(s), Denies frequent falls, Denies lethargy and Denies weakness Eyes Eyes: Denies change in vision, Denies eye discharge, Denies irritation and Denies loss of vision ENT Ears, Nose, Mouth, and Throat: Denies change in voice, Denies dizziness, Denies neck pain, Denies sore throat and Denies throat swelling Cardiovascular Cardiovascular: Denies chest pain, Denies irregular heart rhythm, Denies lightheadedness, Denies palpitations, Denies dyspnea, Denies dyspnea on exertion and Denies orthopnea Respiratory Respiratory: Denies cough, Denies dyspnea, Denies dyspnea on exertion and Denies wheezing Gastrointestinal Gastrointestinal: Denies abdominal pain, Denies change in bowel habits, Denies diarrhea, Denies nausea and Denies vomiting Musculoskeletal Musculoskeletal: Reports back pain, Denies neck pain, Denies numbness and Reports radiating pain into limb (Right) Integumentary/Breasts Skin/Breast: Denies pruritus, Denies erythema, Denies rash and Denies wounds Neurologic Neurologic: Denies behavioral changes, Denies confusion, Denies dizziness, Denies frequent falls, Denies loss of vision, Denies numbness and Denies weakness Psychiatric Psychiatric: Denies anxiety, Denies behavioral changes, Denies confusion, Denies depression, Denies homicidal ideation and Denies suicidal ideation Endocrine Endocrine: Denies fatigue, Denies flushing and Denies palpitations Hematologic/Lymphatic Hematologic/Lymphatic: Denies easy bruising Allergic/Immunologic Allergic/Immunologic: Denies urticaria, Denies throat swelling and Denies wheezing Patient History <Eric Mathis PA-C - Last Filed: 08/02/24 19:32> Medical History Asthma Social History Smoking Status: Never smoker Smoking Status: Never smoker alcohol intake frequency: holidays/special occasions only Exam <Eric Mathis PA-C - Last Filed: 08/02/24 19:32> Narrative Exam Narrative: Const General:?cooperative, healthy appearing and comfortable [facility] Head:?normal to inspection Ears:?hearing grossly normal bilaterally Nose:?external nose normal Face and sinus:?normal facial exam and sinuses nontender Mouth:?oral mucosae normal Throat:?posterior oropharynx normal Eyes General:?appearance normal, both eyes and all related structures Neck Neck:?normal visual inspection and no lymphadenopathy noted Resp Effort & Inspection:?normal respiratory effort Auscultation:?clear to auscultation bilaterally Cardio Rate:?regular rate Rhythm:?regular rhythm Musculoskeletal No midline tenderness to palpation. No paraspinal tenderness to palpation. Neurovascularly intact. Gait is normal. Neuro General:?patient alert, patient awake and patient oriented x3 Initial Vital Signs Initial Vital Signs: Vital Signs Temperature 98.7 F 08/02/24 14:32 Pulse Rate 85 08/02/24 14:32 Respiratory Rate 16 08/02/24 14:32 Blood Pressure 129/72 08/02/24 14:32 Pulse Oximetry 99 08/02/24 14:32 Oxygen Delivery Method Room Air 08/02/24 14:32 <Xenia Robertson DO - Last Filed: 08/03/24 03:46> Initial Vital Signs Initial Vital Signs: Vital Signs Temperature 98.7 F 08/02/24 14:32 Pulse Rate 85 08/02/24 14:32 Respiratory Rate 16 08/02/24 14:32 Blood Pressure 129/72 08/02/24 14:32 Pulse Oximetry 99 08/02/24 14:32 Oxygen Delivery Method Room Air 08/02/24 14:32 Course <Eric Mathis PA-C - Last Filed: 08/02/24 19:32> Orders Ordered: Discontinued Medications Ketorolac Tromethamine (Ketorolac 30 Mg/Ml Vial) 30 mg IM NOW ONE Stop: 08/02/24 19:07 Last Admin: 08/02/24 19:14 Dose: 30 mg Documented By: SG Ondansetron HCl (Ondansetron 4 Mg Odt) 4 mg SL NOW ONE Stop: 08/02/24 17:30 Last Admin: 08/02/24 17:38 Dose: 4 mg Documented By: SG Vital Signs Vital signs: Vital Signs - 8 hr 08/02/24 14:32 08/02/24 18:48 Temperature 98.7 F Pulse Rate 85 78 Respiratory Rate 16 18 Blood Pressure 129/72 126/80 Pulse Oximetry 99 100 Oxygen Delivery Method Room Air Room Air <Xenia Robertson DO - Last Filed: 08/03/24 03:46> Orders Ordered: Discontinued Medications Ketorolac Tromethamine (Ketorolac 30 Mg/Ml Vial) 30 mg IM NOW ONE Stop: 08/02/24 19:07 Last Admin: 08/02/24 19:14 Dose: 30 mg Documented By: KM Ondansetron HCl (Ondansetron 4 Mg Odt) 4 mg SL NOW ONE Stop: 08/02/24 17:30 Last Admin: 08/02/24 17:38 Dose: 4 mg Documented By: SG Vital Signs Vital signs: Vital Signs - 8 hr 08/02/24 14:32 08/02/24 18:48 Temperature 98.7 F Pulse Rate 85 78 Respiratory Rate 16 18 Blood Pressure 129/72 126/80 Pulse Oximetry 99 100 Oxygen Delivery Method Room Air Room Air MDM - Back Pain/Injury <Eric Mathis PA-C - Last Filed: 08/02/24 19:32> MDM Narrative Medical decision making narrative: 39-year-old female with past medical history chronic lower back pain presents to the ED for acute on chronic exacerbation of the low back pain. Patient was given an injection of Toradol. Patient initially stated that she did not want opioids since it causes itching, however did agree to trial some tramadol. Also prescribed Flexeril. Recommend follow-up with [facility] and PCP. ED return precautions discussed with patient. Patient verbalized understanding. Medical records reviewed: Yes Discharge Plan Departure Patient Disposition: Home Clinical Impression: Low back pain Qualifiers: Chronicity: acute Back pain laterality: right Sciatica presence: with sciatica Sciatica laterality: sciatica of right side Qualified Code(s): M54.41 - Lumbago with sciatica, right side Instructions: DI for Low Back Pain Activity Restrictions/Additional Instructions: You were evaluated in the ED today for continued lower back pain. You were given an injection of Toradol. You were also being prescribed a different muscle relaxant to trial. Please follow-up with your [facility] and PCP as soon as possible. Return to the ED if you have worsening symptoms, numbness, tingling, weakness, urinary difficulties. Prescriptions: New cyclobenzaprine 10 mg tablet 10 mg PO TID PRN (Reason: muscle spasm) Qty: 14 0RF tramadol 50 mg tablet 50 mg PO Q8H PRN (Reason: pain) 3 Days Qty: 10 0RF No Action methocarbamol 1,000 mg tablet 1,000 mg PO BEDTIME Qty: 10 0RF naproxen 500 mg tablet 500 mg PO BID PRN (Reason: pain) Qty: 14 0RF acetaminophen 500 mg capsule 1,000 mg PO Q6H PRN (Reason: pain) Qty: 20 0RF Rx Instructions: Max three times a day. lidocaine [Lidoderm] 5 % adhesive patch,medicated 1 patch topical DAILY Qty: 15 0RF Rx Instructions: leave on most painful area for up to 12 hrs prednisone 20 mg tablet 40 mg PO DAILY 5 Days Qty: 10 0RF prednisone 10 mg tablet 10 mg PO DAILY Qty: 30 0RF Rx Instructions: day 1-3: 40 mg once a day day 4-6: 30 mg once a day day 7-9: 20 mg once a day day 10-12: 10 mg once a day omeprazole 40 mg capsule,delayed release(DR/EC) 40 mg PO DAILY Qty: 20 0RF Referrals: Sirena Bowles MD [Primary Care Provider] - Stand Alone Forms: Patient Portal/API/Survey ED Sign-out <Xenia Robertson DO - Last Filed: 08/03/24 03:46> Cosign ED Attending Cosignature Attestation: I was available for consultation.
== END 2024-08-02 19:20 | disposition home or self-care (01) ==
PROVIDERS: Emergency Provider Student in an Organized Health Care Education/Training Program; PCP Student in an Organized Health Care Education/Training Program
DX: M54.41 Lumbago with sciatica, right side (principal); G89.29 Other chronic pain
CPT/HCPCS: 96372; 99283; 99284; J1885